=== PATIENT | female | born 1985 | race American Indian/Alaskan Native ===

== ENCOUNTER 2017-01-13 05:58 | Inpatient (IN) | payer OTHER ==
[2017-01-13] MEDS: Lactated Ringers 1,000 ML IV SCH ×5 (06:20→19:08)
[2017-01-13] MEDS ORDERED: ceFAZolin 2 GM in Premix Bag 1 BAG IV ONE (07:00)
[2017-01-13] MEDS ORDERED: Sodium Chloride 0.9% 10 ML Syringe FLUSH PRN (07:00)
[2017-01-13] MEDS ORDERED: Oxytocin/Normal Saline 30 UNIT/500 ML BAG IV SCH (07:00)
[2017-01-13] MEDS ORDERED: Citric Acid/Sodium Citrate Solution 30 ML Cup PO ONE (07:00)
[2017-01-13] MEDS ORDERED: Oxytocin/Normal Saline 60 UNIT/1,000 ML BAG ONE (07:01)
[2017-01-13] MEDS ORDERED: ePHEDrine 50 MG/ML SDV ONE (07:16)
[2017-01-13] MEDS ORDERED: Morphine PF 1 MG/ML Amp ONE ×2 (07:16→16:42)
[2017-01-13] MEDS ORDERED: Ondansetron 4 MG/2 ML SDV ONE (07:16)
[2017-01-13] MEDS ORDERED: Ketorolac 30 MG/ML SDV ONE (07:16)
[2017-01-13] MEDS ORDERED: Bupivacaine 0.75%/D5W 2 ML Amp ONE (07:19)
[2017-01-13] MEDS ORDERED: Ondansetron 4 MG/2 ML SDV IV PRN (09:37)
[2017-01-13] MEDS ORDERED: Misoprostol 400 MCG (4 X 100 MCG TAB) RECTAL PRN (09:37)
[2017-01-13] MEDS ORDERED: diphenhydrAMINE 50 MG/ML SDV IVPUSH PRN (09:37)
[2017-01-13] MEDS ORDERED: Acetaminophen 325 MG Tab PO PRN (09:37)
[2017-01-13] MEDS ORDERED: Methylergonovine 0.2 MG/1 ML Amp IM PRN (09:37)
[2017-01-13] MEDS ORDERED: ePHEDrine 50 MG/ML SDV IVPUSH PRN (09:37)
[2017-01-13] MEDS ORDERED: Naloxone 2 MG/2 ML Syringe IVPUSH PRN (09:37)
[2017-01-13] MEDS ORDERED: Carboprost Tromethamine 250 MCG/1 ML Amp IM ONE (09:37)
[2017-01-13] MEDS ORDERED: Acetaminophen/oxyCODONE 325-5 MG Tab PO PRN (09:37)
--- NOTE | 2017-01-13 13:43 | OR ---
DATE: 01/13/2017 PROCEDURE: Elective repeat low transverse section. CHIEF DIAGNOSES: 1. A 31-year-old, G3, P2, at 39 and 5/7 weeks' gestation. 2. Elective repeat low transverse section. 3. Gestational diabetes, diet controlled. 4. O positive blood type. 5. Rubella immune. 6. Group B streptococcus negative. 7. Mild anemia. POSTOPERATIVE DIAGNOSES: 1. A 31-year-old, G3, P2, at 39 and 5/7 weeks' gestation. 2. Elective repeat low transverse section. 3. Gestational diabetes, diet controlled. 4. O positive blood type. 5. Rubella immune. 6. Group B streptococcus negative. 7. Mild anemia. 8. Viable male , scores of 8 and 9, and 8 pounds 3 ounces. ASSISTANTS: 1. Shanti Gonzalez MD. 2. GIOVANNY Parkinson. ESTIMATED BLOOD LOSS: 800 mL. URINE OUTPUT: 500 mL clear urine. FLUIDS IN: 1700 mL. MEDICATIONS: Two grams Ancef IV preop and Pitocin IV infusion post delivery per protocol. COMPLICATIONS: None. FINDINGS: This delightful 31-year-old, G3, P2, presented as scheduled at 39 and 5/7 weeks' gestation for elective low transverse section. She underwent spinal anesthesia with excellent results, and Rojas catheter was placed. She was prepped and draped in the usual sterile manner, and a time-out procedure was performed in my presence. A purple marker was used to guru her previous incision. The scalp was used down through the old incision. Electrocautery was used down through the subcutaneous tissue, which showed some scarring. The fascia was divided transversely, and inferior and superior fascial flaps were developed with sharp and blunt dissection, and extensive scarring was noted. The rectus was identified and divided in the midline. Peritoneum was identified and entered, and the incision was extended until we had excellent visualization of the lower uterine segment. Extra large Tan retractor was placed with good results. Bladder flap was developed with sharp and blunt dissection, and a stab incision was made into the lower uterine segment. A large amount of clear fluid was noted once the amniotic sac was entered. Vertex was directed into the incision, and the baby was easily delivered. Time of delivery was 08:05 a.m., and this viable male weighed 8 pounds 3 ounces and had scores of 8 and 9 at 1 and 5 minutes respectively. Baby had a strong cry at , and cord was doubly clamped and cut by myself. The baby was carried to the warmer by Dr. Peck to awaiting nursery staff. The baby was then carried up to the parents once he was found to be stable for some skin to skin contact and care. A cord blood sample was obtained. The placenta was removed and found to be intact. The uterus was wiped clean and dry. Incision edges were grasped with Hess forceps. The uterus was closed with running locking 0 Vicryl. A second imbricating layer was placed followed by two nouxdv-sv-zqapz stitches for hemostasis. Examination of the incision showed it to be dry with no evidence of significant bleeding. The Tan retractor was removed. Gutters were examined and were dry, and the incision was again examined and was hemostatic. Peritoneum was closed with running Vicryl suture. The rectus layer was closed with loose interrupted Vicryl suture. The fascia was then brought together with 0 Maxon loop suture in a running standard fashion with excellent results. The subcutaneous layer did not show any significant bleeding. The skin edges were brought together with reese with excellent approximation. There were no intraoperative complications, and the patient remained stable throughout the procedure. She was transferred to recovery in good condition. We will follow standard postop and orders and routines adjusting as needed pending her clinical course. [facility] /[id number]
[2017-01-13] MEDS: Ketorolac 30 MG/ML SDV IVPUSH SCH ×2 (14:20→20:22)
[2017-01-13] MEDS ORDERED: Ondansetron 4 MG/2 ML SDV IV ONE (16:42)
[2017-01-13] MEDS ORDERED: Ketorolac 30 MG/ML SDV IVPUSH ONE (16:42)
[2017-01-13] MEDS ORDERED: Oxytocin/Normal Saline 30 UNIT/500 ML BAG IV ONE (16:42)
[2017-01-13] MEDS ORDERED: ePHEDrine 50 MG/ML SDV IV ONE (16:42)
[2017-01-13] MEDS: Simethicone 80 MG Tab.Chew PO PRN (20:22)
[2017-01-13] MEDS: Docusate Sodium 100 MG Cap PO PRN (20:23)
[2017-01-14] MEDS: Ketorolac 30 MG/ML SDV IVPUSH SCH (02:29)
[2017-01-14] MEDS: Docusate Sodium 100 MG Cap PO PRN (07:20)
[2017-01-14] MEDS: Simethicone 80 MG Tab.Chew PO PRN ×3 (07:20→15:33)
[2017-01-14] MEDS: Acetaminophen/oxyCODONE 325-5 MG Tab PO PRN ×5 (07:21→23:39)
[2017-01-14] MEDS: Ibuprofen 800 MG Tab PO PRN ×2 (10:29→18:25)
[2017-01-14] MEDS: Prenatal Multivitamin with Calcium/Folic Acid/Iron Tab PO SCH (11:08)
[2017-01-15] MEDS: Acetaminophen/oxyCODONE 325-5 MG Tab PO PRN ×2 (03:36→08:15)
[2017-01-15 04:41] VITALS: BP 97/58
[2017-01-15] MEDS: Docusate Sodium 100 MG Cap PO PRN (08:14)
[2017-01-15] MEDS: Simethicone 80 MG Tab.Chew PO PRN (08:14)
[2017-01-15] MEDS: Ibuprofen 800 MG Tab PO PRN (08:14)
[2017-01-15] MEDS: Prenatal Multivitamin with Calcium/Folic Acid/Iron Tab PO SCH (08:14)
--- NOTE | 2017-01-15 10:47 | PN ---
DATE: 01/14/2017 SUBJECTIVE: Postop day #1, status post elective repeat low-transverse section, and doing well, has recovered from her spinal anesthesia. Rojas catheter is being removed. She is voiding without difficulty. No vomiting. Has been able to eat. She is . OBJECTIVE: Vital Signs: Temperature 98.4, pulse 68, blood pressure 107/62. Abdomen: Soft. Bowel sounds are present. Incision is intact. Extremities: Without edema. LABORATORY DATA: Lab work. White count 8.9, hemoglobin 10.3, platelet count of 190. IMPRESSION: Postop day #1, status post elective repeat low-transverse section in this delightful 31-year-old, G3, now P3, at 39 and 5/7 weeks' gestation, with gestational diabetes which was diet controlled, and her glucose on admission was 85. O positive blood type. Rubella immune. Group B strep negative. Mild anemia. mom with a viable male . PLAN: We will continue with routine postop and cares. She likely will be discharged home tomorrow per her request for early discharge and is doing well. Further management pending her clinical course. [facility] /[id number]
--- NOTE | 2017-01-15 14:49 | DISCH ---
FINAL DIAGNOSES: 1. A 31-year-old, G3, now P3, at 39 and 5/7 weeks' gestation. 2. Elective repeat low-transverse section. 3. Viable male , scores 8 and 9 with a weight 8 pounds, 4 ounces. 4. Gestational diabetes, diet controlled. 5. O positive blood type. 6. Rubella immune. 7. Group B strep negative. 8. Mild anemia. 9. mother. FINDINGS: This delightful, 31-year-old, G3, P2, presented as scheduled at 39 and 5/7 weeks' gestation for elective repeat low-transverse section. She underwent spinal anesthesia and surgery as scheduled, delivering an 8 pounds, 4 ounce male with scores of 8 and 9 at 1 and 5 minutes respectively. The surgery was uncomplicated. Please see her operative note for details. weight was 3735 g. Her spinal anesthesia completely resolved. Rojas catheter was removed, and bladder function returned. She is voiding without difficulty. She is eating, ambulating, voiding, and stooling. Her vitals have remained stable and she has remained afebrile. She is without difficulty and has been bonding well with baby. Lab work showed white count 8.9 on admission, and recheck of 8.9 postop. Hemoglobin 11.7 on admit with 10.3 on postop day #1. Platelet count 224, with a recheck of 190. Glucose was 85 on admit and was not rechecked as she was doing very well. The patient requested early discharge on postop day #2. On examination, her abdomen was soft. Bowel sounds active. Her incision is intact with no sign of dehiscence or infection. Her reese were intact and she was felt clinically stable enough for discharge. She was discharged home on postop day #2 in good condition. Will follow up in 1 week for staple removal and postop recheck. Will continue to follow her other postop and orders. MEDICATIONS: Include: 1. vitamins 1 daily. 2. Iron b.i.d. 3. Ibuprofen kqyh-kef-nydqszz. 4. Percocet prescription written for 5-325 mg, #28, 1 q.i.d. p.r.n. pain with no refills. All of her questions were answered, and will follow other regular discharge orders and instructions. Further management pending her clinical course. [facility] /[id number]
== END 2017-01-15 12:00 | disposition home or self-care (01) | DRG 766 ==
LOC: DL.OB 05:58 → EDSTATUS 08:00 → DL.OB 08:05 → OBSVTOIN 08:05
PROVIDERS: ADMIT Family Medicine; ATTEND Family Medicine
PROC: 10D00Z1 Extraction of Products of Conception, Low, Open Approach (ICD-10-PCS; principal; 2017-01-13)
DX: O34.211 Maternal care for low transverse scar from previous cesarean delivery (principal); N85.8 Other specified noninflammatory disorders of uterus; Z3A.40 40 weeks gestation of pregnancy; Z37.0 Single live birth; O24.420 Gestational diabetes mellitus in childbirth, diet controlled; O99.02 Anemia complicating childbirth; D64.9 Anemia, unspecified; Z87.891 Personal history of nicotine dependence
CPT/HCPCS: 01961; 36415; 59025; 82947; 85025; 85027; 86850; 86900; 86901; 94010; A9270-GY; J0690; J1885; J2274; J2405; J2590; J7120

== ENCOUNTER 2021-03-19 05:02 | Observation (INO) | payer OTHER ==
[2021-03-19] MEDS ORDERED: Oxytocin/Normal Saline 30 UNIT/500 ML BAG IV ONE (05:03)
[2021-03-19] MEDS ORDERED: Oxytocin/Normal Saline 60 UNIT/1,000 ML BAG ONE (06:11)
[2021-03-19] MEDS: Lactated Ringers 1,000 ML IV SCH ×4 (06:20→20:35)
[2021-03-19] MEDS ORDERED: Tranexamic Acid 1,000 MG in Sodium Chloride 0.9% 100 ML IV PRN (06:34)
[2021-03-19] MEDS ORDERED: diphenhydrAMINE 50 MG/ML SDV IVPUSH PRN (06:34)
[2021-03-19] MEDS ORDERED: Acetaminophen 325 MG Tab PO PRN (06:34)
[2021-03-19] MEDS ORDERED: Acetaminophen/oxyCODONE 325-5 MG Tab PO PRN ×2 (06:34)
[2021-03-19] MEDS ORDERED: Methylergonovine 0.2 MG/1 ML Amp IM PRN (06:34)
[2021-03-19] MEDS ORDERED: Misoprostol 400 MCG (4 X 100 MCG TAB) RECTAL PRN (06:34)
[2021-03-19] MEDS ORDERED: Carboprost Tromethamine 250 MCG/1 ML Amp IM PRN (06:34)
[2021-03-19] MEDS ORDERED: ePHEDrine 50 MG/ML SDV IVPUSH PRN (06:34)
[2021-03-19] MEDS ORDERED: Naloxone 2 MG/2 ML Syringe IVPUSH PRN (06:34)
[2021-03-19] MEDS ORDERED: Ondansetron 4 MG/2 ML SDV IVPUSH PRN (06:34)
[2021-03-19] MEDS ORDERED: Citric Acid/Sodium Citrate Solution 30 ML Cup ONE (07:24)
[2021-03-19] MEDS ORDERED: Citric Acid/Sodium Citrate Solution 30 ML Cup PO ONE (07:26)
[2021-03-19] MEDS ORDERED: ceFAZolin 2 GM in Premix Bag 1 BAG IV ONE (08:30)
[2021-03-19] MEDS ORDERED: Oxytocin/Normal Saline 30 UNIT/500 ML BAG IV SCH (08:42)
--- NOTE | 2021-03-19 09:06 | OBOUT ---
DATE: 03/19/2021 DATE AND TIME OF NST: 03/19/2021, 6:45 to 7:05. REASON FOR NST: 1. Intrauterine at 39 weeks by 22-week ultrasound. 2. Previous x3, requests repeat low transverse . 3. Advanced maternal age. 4. History of gestational diabetes mellitus with previous . The patient has been following her sugars and controlled with diet during this current . 5. GBS negative. 6. G4, P3-0-0-3. NST INTERPRETATION: During this time period, heart tone baseline is approximately 125 and at least two 15 x 15 beats per minute accelerations making this strip reactive as well as reassuring. Tocometer reveals potential of 4 to 5 contractions. The patient describes them only as tightening, not true contractions. ASSESSMENT: 1. Nonstress test, reactive and reassuring. 2. Tocometer reveals contractions. PLAN: Please see H and P, which was updated this morning, and we will proceed to the OR as soon as crew is ready and available. The patient understands and agrees with the above treatment plan. [facility] /[id number]
[2021-03-19] MEDS: Simethicone 80 MG Tab.Chew PO SCH ×4 (10:57→20:33)
[2021-03-19] MEDS: Prenatal Multivitamin with Calcium/Folic Acid/Iron Tab PO SCH (10:57)
--- NOTE | 2021-03-19 11:09 | OR ---
DATE: 03/19/2021 PREOPERATIVE DIAGNOSES: 1. Intrauterine at 39 weeks by 22 weeks ultrasound. 2. Previous x3, request repeat low transverse . 3. Advanced maternal age. 4. History of gestational diabetes mellitus with previous . Sugar was controlled during this with diet. 5. GBS negative. 6. G4, P3-0-0-3. POSTOPERATIVE DIAGNOSES: 1. Intrauterine at 39 weeks by 22 weeks ultrasound - delivered. 2. Previous x3, request repeat low transverse . 3. Advanced maternal age. 4. History of gestational diabetes mellitus with previous . Sugar was controlled during this with diet. 5. GBS negative. 6. G4, P3-0-0-3. 7. Burwell-tinged urine with conclusion of case noted. 8. Extensive scar tissue subfascially and at the fascial layer noted. PROCEDURE PERFORMED: NST followed by repeat low transverse . PHARMACY STOCK CLERK: Carole Orr MD ANESTHESIA: Spinal. ESTIMATED BLOOD LOSS: 400 mL. IV FLUIDS: 1000 mL lactated Ringer's. URINE OUTPUT: 200 mL and pink tinge colored urine. START: 8:03. UTERINE INCISION: 8:07. DELIVERY: 8:08. STOP: 8:34. FINDINGS: Male, score 8 and 8, weight pending. DESCRIPTION OF PROCEDURE IN DETAIL: After proper consent was obtained, the patient was brought to the operating room where spinal anesthetic was administered. A Rojas was placed under preop under sterile conditions. The abdomen was prepped and draped in normal sterile fashion. The patient was placed in supine position with left lateral tilt. A skin incision was then made over lower abdomen in transverse Pfannenstiel-type fashion over a previous scar and this was carried down to the fascia and scored in the midline with extensive scar tissue around the fascia noted. Subcutaneous tissue raked laterally with Tipton retractor. Fascial incision was extended in transverse fashion using curved Leroy's. Amado clamps x2 were used to grasp superior aspect of fascia and rectus muscles dissected from the fascia using sharp and blunt technique. In a similar fashion, Amado clamps x2 were used to grasp the inferior portion of the incision and rectus pyramidalis muscles were dissected from the fascia using sharp and blunt technique. Extensive scar tissue around this area was noted and care was taken and rectus muscles were in midline superiorly and abdominal cavity was entered superiorly, and incision was extended superiorly and inferiorly with blunt technique. Tan O large retractor was then introduced and used. Vesicouterine peritoneum was identified and incised in a transverse fashion with Metzenbaum scissors and bladder flap was made digitally. Curvilinear incision was made on lower uterine segment at 0807 hours. Uterus was entered sharply. Uterine incision was then extended in a transverse fashion using blunt technique. Rupture of membranes occurred at this time and clear fluid was noted. Subsequently, vertex was delivered through the incision followed by rest of the infant with minimal difficulty. Mouth and nares were suctioned. Cord was doubly clamped and cut and infant was brought over to the team. Then, approximately 10 mL of cord blood was obtained for labs. Placenta was then delivered with gentle cord traction and fundal massage. Uterine cavity was then cleared of all blood clots, debris, lap, sponge. Hess clamps were used to grasp the incision. This was closed in a running locked fashion and tied at lateral margins with 1-0 Vicryl. Second imbricating layer was applied and tied at lateral margins as oozing was noted along the length of the incision. First inspection of the uterine incision revealed hemostasis. Tan O retractor was then removed and paracolic gutters were then cleared of all blood clots and debris with lap, sponge. Anterior cul-de-sac was then irrigated copiously. All blood clots were removed. Second and final inspection of the uterine incision and anterior cul-de-sac revealed hemostasis. Rectus muscles were then reapproximated in midline with driqak-ay-rqbmx stitch using 1-0 Vicryl. Subfascial tissues were found to be hemostatic. Fascia was closed in a running fashion and tied at lateral margins with 0 looped PDS. Subcutaneous tissue was irrigated copiously. Hemostasis was reassured. Skin was reapproximated using 3-0 Monocryl on a Faisal needle and tied at lateral margins. Steri-Strips applied thereafter followed by dressing. Firm uterus, -1 below umbilicus at conclusion of the case. No immediate complications were noted. Sponge, lap, and needle counts were correct. The patient received 2 g Ancef preoperatively, Pitocin per protocol, and received Toradol at conclusion of case for pain control. Mother and are currently stable at the time of dictation. For the pink-tinged urine noted at conclusion of case, we will follow closely with Rojas left in place. Did discuss this with the patient and we will follow for resolution. If no resolution, may need further evaluation and management, and this was discussed with the patient as well. [facility] /[id number] MTDEleazar
[2021-03-19] MEDS: Ketorolac 30 MG/ML SDV IVPUSH SCH ×2 (14:13→20:26)
[2021-03-19] MEDS: Docusate Sodium 100 MG Cap PO PRN (20:33)
[2021-03-20] MEDS: Ketorolac 30 MG/ML SDV IVPUSH SCH (02:41)
[2021-03-20] MEDS: Prenatal Multivitamin with Calcium/Folic Acid/Iron Tab PO SCH (09:08)
[2021-03-20] MEDS: Docusate Sodium 100 MG Cap PO PRN (09:08)
[2021-03-20] MEDS: Simethicone 80 MG Tab.Chew PO SCH ×3 (09:08→17:50)
[2021-03-20] MEDS: Ibuprofen 800 MG Tab PO PRN ×2 (10:43→18:27)
--- NOTE | 2021-03-20 12:34 | PN ---
DATE: 03/20/2021 03/20/2021, postop day #1 status post repeat low transverse SUBJECTIVE: The patient is tolerating p.o., is ambulating. Rojas is in place. Passing flatus. Mild abdominal pain controlled with pain medicines as needed. OBJECTIVE: Vital Signs: Temperature 98.7, heart rate 62, blood pressure 105/63, respiratory rate 16. Lungs: Clear to auscultation bilaterally. Heart: S1, S2. Regular rate and rhythm. Abdomen: Firm uterus at +1 below umbilicus. Dressing is dry and intact over the incision. Extremities: No peripheral edema. No calf pain LABORATORY DATA: White cell count 8.1; hemoglobin 9.9, compared to predelivery hemoglobin 12.2; platelets 176. Urine output has been followed closely as there was hematuria noted after delivery, and over it appears to be 10-hour period there was at least 1700 mL and currently in the tubing there is a small or minimal amount of clotted blood less than 2 to 3 mm in length and thereafter beyond the tube proximally is clear urine with no evidence of gross hematuria. ASSESSMENT: 1. Postop day #1 status post repeat low transverse . 2. Hematuria after operation completed noted. PLAN: I did discuss the case with Dr. Mckeon, SHEEP KILLER on-call and as hematuria is significantly improving, nurses noted sometimes it seems to be exacerbated by movement. We will continue to follow clinically and closely. If not completely resolved by 48 hours after the case, which will be tomorrow morning, would consider CT urogram for further evaluation and management. Plans were discussed with the patient. We will continue to follow clinically and closely. Currently, waiting a call back from the CT department to make sure that we can do this with proper dye and evaluation. In anticipation for potential need for this, we will order a BMP and a CBC tomorrow and we will continue to follow clinically and closely. If worsens, may need sooner evaluation and Dr. Peck who is covering in my absence today will be notified. [facility] /[id number]
[2021-03-21] MEDS: Simethicone 80 MG Tab.Chew PO SCH ×2 (00:10→08:40)
[2021-03-21] MEDS: Ibuprofen 800 MG Tab PO PRN ×2 (02:37→09:53)
[2021-03-21 06:48] LABS: ANION GAP 13.8 mEq/L (7-13); CHLORIDE,CL 107 mmol/L (98-107); SODIUM,NA 142 mmol/L (136-145)
[2021-03-21] MEDS: Prenatal Multivitamin with Calcium/Folic Acid/Iron Tab PO SCH (08:40)
[2021-03-21] MEDS: Docusate Sodium 100 MG Cap PO PRN (08:40)
[2021-03-21 09:42] VITALS: BP 114/74; PULSE 82
--- NOTE | 2021-03-21 10:37 | DISCH ---
ADMITTING DIAGNOSES: 1. Intrauterine at 39 weeks by 22-week ultrasound. 2. Previous x3, requests repeat low transverse . 3. Advanced maternal age. 4. History of gestational diabetes mellitus previous . Sugar is controlled with diet during this with patient checking. 5. Group B streptococcus negative. 6. G4, P3-0-0-3. DISCHARGE DIAGNOSES: 1. Intrauterine at 39 weeks by 22-week ultrasound - delivered. 2. Previous x3, request repeat low transverse . 3. Advanced maternal age. 4. History of gestational diabetes mellitus previous . Sugar is controlled with diet during this with patient checking. 5. Group B streptococcus negative. 6. G4, P3-0-0-3. 7. Postop hematuria, followed closely and resolved. Discussed with Dr. Mckeon, INVESTIGATIONS DIRECTOR on-call on postop day #1, and was resolved on date of discharge. PROCEDURES PERFORMED: Nonstress test followed by repeat low transverse C- section. Procedure performed by Olvin Christensen MD. office administrative assistant, Carole Orr. His. HISTORY OF PRESENT ILLNESS: Please see H and P. SUMMARY OF HOSPITAL COURSE: The patient was admitted on the above date with the above diagnosis, underwent repeat low transverse yielding a male, scores of 8 and 8, weighing 7 pounds 15 ounces (3585 g). At the end of the case, hematuria was noted and followed closely, and resolved by postop day #2. Case was discussed as postop day #1 around 24 hours there was mild hematuria that persisted with Dr. Mckeon, INVESTIGATIONS DIRECTOR on-call. Urine output was excellent and followed as well, and upon date of discharge hematuria resolved. DISCHARGE EVALUATION: The patient is tolerating p.o., was ambulating, urinating, passing flatus, requesting discharge. PHYSICAL EXAMINATION: Vital Signs: Last set of vitals; temp 98.4, heart rate 75, blood pressure 109/68, respiratory rate 16. Lungs: Clear to auscultation bilaterally. Heart: S1, S2. Regular rate and rhythm. Abdomen: Firm uterus, +1 below umbilicus. Dressing over the incision is dry and intact. Extremities: No peripheral edema. No calf pain. LABORATORY DATA: Labs upon discharge; white cell count 10.8; hemoglobin 11, predelivery hemoglobin 12.2, and lowest being 9.9, platelets at 179. BMP was done; BUN normal 11, creatinine at 0.93. CONDITION ON DISCHARGE COMPARED TO CONDITION ON ADMISSION: Improved. DISCHARGE INSTRUCTION: 1. Diet: As tolerated. 2. Activity: No lifting more than 20 pounds. No sit-ups, straining, and pelvic rest for the next 6 weeks, with immediate return to fertility discussed with patient. 3. Reason to return or go to the emergency room discussed with patient in detail including, but not limited to temperature greater than 100.4, foul- smelling discharge, red or tender breasts, or increased vaginal bleeding, or increasing pain, drainage, or redness around the incision or if hematuria recurs recommend going to the ER and discussed with patient. DISCHARGE MEDICATIONS: Rbso-yna-fjwkada Tylenol or ibuprofen for pain, Percocet 5/325, 1 to 2 q.6 hours p.r.n., #20, no refills. Discussed the use of medications and adverse and unwanted effects, as well as precautions with driving. FOLLOW UP: Follow up in 2 weeks for incision check. Did discuss reasons to return or go to the emergency room with regard to her baby, and follow up will be made for Thursday, March 25, [address] Christensen in the clinic. She understands and agrees with the above treatment and plan. Please see discharge paperwork for further details as well. [facility] /[id number] MORE[place]
[2021-03-21] MEDS ORDERED: Ondansetron 4 MG/2 ML SDV IV ONE (11:49)
[2021-03-21] MEDS ORDERED: Morphine PF 1 MG/ML Amp ITHECAL ONE (11:49)
[2021-03-21] MEDS ORDERED: Ketorolac 30 MG/ML SDV IVPUSH ONE (11:49)
[2021-03-21] MEDS ORDERED: Dexamethasone 4 MG/ML SDV IV ONE (11:49)
[2021-03-21] MEDS ORDERED: Lactated Ringers 1,000 ML IV ONE (11:49)
== END 2021-03-21 11:50 | disposition home or self-care (01) ==
LOC: DL.MS 05:02
PROVIDERS: ADMIT Family Medicine; ATTEND Family Medicine
DX: O34.211 Maternal care for low transverse scar from previous cesarean delivery (principal); Z3A.39 39 weeks gestation of pregnancy; Z01.812 Encounter for preprocedural laboratory examination; Z20.822 Contact with and (suspected) exposure to COVID-19
CPT/HCPCS: 01961; 36415; 80048; 85027; 86850; 86900; 86901; A9270-GY; J0690; J1100; J1885; J2274; J2405; J2590; J7120; U0002

== ENCOUNTER 2021-03-23 03:30 | Emergency (ER) | payer OTHER ==
[2021-03-23] MEDS ORDERED: HYDROmorphone 0.5 MG/0.5 ML Syringe IVPUSH ONE ×2 (03:33→07:39)
[2021-03-23] MEDS ORDERED: HYDROmorphone 1 MG/ML Syringe ONE ×2 (03:34→05:06)
--- NOTE | 2021-03-23 03:43 | EDM.PDOC ---
ED HPI GENERAL MEDICAL PROBLEM - General Chief Complaint: Genitourinary Problem Stated Complaint: AMBULANCE Time Seen by Provider: 03/23/21 03:38 Source of Information: Reports: Patient History Limitations: Reports: No Limitations - History of Present Illness INITIAL COMMENTS - FREE TEXT/NARRATIVE: 35 y/o F c/o diffuse abd pain 09/29 since evening. Pain is pressure in n ature worse with deep breathing worse in the upper quad. . C section by Dr. Christensen here at [facility] on Thursday03-19-21. Pt reports her bladder was nicked during the operation and she ended up spending an extra night in the hospital with a catheter. Pt has been constipated and has not had a bowel movement since Thursday. Has not urinated since night. Pt states she got home from the hospital night and began having sweats and notices her abd began swelling. Pt was prescribed vicodin to take home after the c section and took two pils over the course of the last 3 days. Has not had any over the counter meds. No daily prescriptions. NKDA. 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 ED EXAM, GI/ABD - Physical Exam Exam: See Below Exam Limited By: No Limitations General Appearance: Alert, Moderate Distress Eyes: Bilateral: Normal Appearance Throat/Mouth: Normal Inspection, Normal Lips, Normal Teeth, Normal Gums, Normal Oropharynx, Normal Voice, No Airway Compromise Head: Atraumatic, Normocephalic Neck: Normal Inspection, Supple, Non-Tender, Full Range of Motion Respiratory/Chest: No Respiratory Distress, Lungs Clear, Normal Breath Sounds, No Accessory Muscle Use, Chest Non-Tender Cardiovascular: Tachycardia GI/Abdominal Exam: Distended, Rigid, Tender (diffuse tenderness throughout worse over the upper quad) (Female) Exam: Deferred Rectal (Female) Exam: Deferred Extremities: Normal Inspection, Normal Range of Motion, Non-Tender, Normal Capillary Refill, No Pedal Edema Neurological: Alert, Oriented, Normal Cognition Psychiatric: Anxious Skin Exam: Warm, Dry, Intact Course - Vital Signs Last Recorded V/S: Last Vital Signs Temp 99.3 F 03/23/21 06:21 Pulse 102 H 03/23/21 06:14 Resp 16 03/23/21 06:14 BP 92/61 03/23/21 06:14 Pulse Ox 93 L 03/23/21 06:14 - Orders/Labs/Meds Orders: Active Orders 24 hr Category Date Time Status Sodium Chloride 0.9% [Normal Saline] 1,000 ml Med 03/23/21 06:42 Active IV .BOLUS Sodium Chloride 0.9% [Normal Saline] 1,000 ml Med 03/23/21 05:15 Active IV ASDIRECTED Medication Orders Sodium Chloride (Normal Saline) 1,000 mls @ 999 mls/hr IV ASDIRECTED GRACIELA Last Admin: 03/23/21 05:15 Dose: 999 mls/hr Documented by: JAVAN Sodium Chloride (Normal Saline) 1,000 mls @ 125 mls/hr IV .BOLUS ONE Stop: 03/23/21 14:41 Labs: Laboratory Tests 03/23/21 03/23/21 03/23/21 Range/Units 03:45 03:57 03:57 WBC 14.3 H (5.0-10.0) 10^3/uL RBC 4.30 (4.2-5.4) 10^6/uL Hgb 13.5 D (12.0-16.0) g/dL Hct 41.1 (37.0-47.0) % MCV 95.6 D (80-100) fL MCH 31.4 (27.0-34.0) pg MCHC 32.8 L (33.0-35.0) g/dL Plt Count 301 D (150-450) 10^3/uL Neut % (Auto) 93.3 H (42.2-75.2) % Lymph % (Auto) 4.0 L (20.5-50.1) % [place] % (Auto) 2.2 (2-8) % Eos % (Auto) 0.4 L (1.0-3.0) % Baso % (Auto) 0.1 (0.0-1.0) % Sodium 134 L (136-145) mmol/L Potassium 5.0 (3.5-5.1) mmol/L Chloride 98 (98-107) mmol/L Carbon Dioxide 18 L (21-32) mmol/L Anion Gap 23.0 H (7-13) mEq/L BUN 32 H (7-18) mg/dL Creatinine 4.03 H D (0.55-1.02) mg/dL Est Cr Clr Drug Dosing 21.78 mL/min Estimated GFR (MDRD) 13 BUN/Creatinine Ratio 7.9 (No establ ref range) Glucose 117 H (70-99) mg/dL Lactic Acid (0.4-2.0) mmol/L Calcium 8.6 (8.5-10.1) mg/dL Total Bilirubin 1.0 (0.2-1.0) mg/dL AST 16 (15-37) U/L ALT 19 (14-59) U/L Alkaline Phosphatase 91 (46-116) U/L C-Reactive Protein 17.7 H (0.0-0.9) mg/dL Total Protein 7.3 (6.4-8.2) g/dL Albumin 2.6 L (3.4-5.0) g/dL Globulin 4.7 Albumin/Globulin Ratio 0.55 Urine Color Yellow (YELLOW) Urine Appearance Slightly cloudy (CLEAR) Urine pH 5.5 (5.0-9.0) Ur Specific [place] 1.020 (1.005-1.030) Urine Protein Negative (NEGATIVE) Urine Glucose (UA) Negative (NEGATIVE) Urine Ketones Negative (NEGATIVE) Urine Occult Blood Trace-intact H (NEGATIVE) Urine Nitrite Negative (NEGATIVE) Urine Bilirubin Negative (NEGATIVE) Urine Urobilinogen 0.2 (0.2-1.0) mg/dL Ur Leukocyte Esterase Negative (NEGATIVE) Urine RBC 5-10 H (0-5) /HPF Urine WBC 10-20 H (0-5/HPF) /HPF Ur Epithelial Cells Rare (NOT SEEN) /HPF Urine Bacteria Occasional (0-FEW/HPF) /HPF SARS-CoV-2 RNA (MATHEUS) (NEGATIVE) 03/23/21 03/23/21 Range/Units 03:57 04:56 WBC (5.0-10.0) 10^3/uL RBC (4.2-5.4) 10^6/uL Hgb (12.0-16.0) g/dL Hct (37.0-47.0) % MCV (80-100) fL MCH (27.0-34.0) pg MCHC (33.0-35.0) g/dL Plt Count (150-450) 10^3/uL Neut % (Auto) (42.2-75.2) % Lymph % (Auto) (20.5-50.1) % [place] % (Auto) (2-8) % Eos % (Auto) (1.0-3.0) % Baso % (Auto) (0.0-1.0) % Sodium (136-145) mmol/L Potassium (3.5-5.1) mmol/L Chloride (98-107) mmol/L Carbon Dioxide (21-32) mmol/L Anion Gap (7-13) mEq/L BUN (7-18) mg/dL Creatinine (0.55-1.02) mg/dL Est Cr Clr Drug Dosing mL/min Estimated GFR (MDRD) BUN/Creatinine Ratio (No establ ref range) Glucose (70-99) mg/dL Lactic Acid 0.9 (0.4-2.0) mmol/L Calcium (8.5-10.1) mg/dL Total Bilirubin (0.2-1.0) mg/dL AST (15-37) U/L ALT (14-59) U/L Alkaline Phosphatase (46-116) U/L C-Reactive Protein (0.0-0.9) mg/dL Total Protein (6.4-8.2) g/dL Albumin (3.4-5.0) g/dL Globulin Albumin/Globulin Ratio Urine Color (YELLOW) Urine Appearance (CLEAR) Urine pH (5.0-9.0) Ur Specific [place] (1.005-1.030) Urine Protein (NEGATIVE) Urine Glucose (UA) (NEGATIVE) Urine Ketones (NEGATIVE) Urine Occult Blood (NEGATIVE) Urine Nitrite (NEGATIVE) Urine Bilirubin (NEGATIVE) Urine Urobilinogen (0.2-1.0) mg/dL Ur Leukocyte Esterase (NEGATIVE) Urine RBC (0-5) /HPF Urine WBC (0-5/HPF) /HPF Ur Epithelial Cells (NOT SEEN) /HPF Urine Bacteria (0-FEW/HPF) /HPF SARS-CoV-2 RNA (MATHEUS) Negative (NEGATIVE) Meds: Medications Generic Name Dose Route Start Last Admin Trade Name Freq PRN Reason Stop Dose Admin Sodium Chloride 1,000 mls @ 999 mls/hr 03/23/21 05:15 03/23/21 05:15 Normal Saline IV 999 mls/hr ASDIRECTED GRACIELA Administration Sodium Chloride 1,000 mls @ 125 mls/hr 03/23/21 06:42 Normal Saline IV 03/23/21 14:41 .BOLUS ONE Discontinued Medications Generic Name Dose Route Start Last Admin Trade Name Freq PRN Reason Stop Dose Admin Hydromorphone HCl 1 mg 03/23/21 03:33 03/23/21 03:36 Hydromorphone 0.5 Mg/0.5 Ml Syringe IVPUSH 03/23/21 03:34 1 mg ONETIME ONE Administration Hydromorphone HCl Confirm 03/23/21 03:34 03/23/21 03:34 Hydromorphone 1 Mg/Ml Syringe Administered 03/23/21 03:35 Not Given Dose 1 mg .ROUTE .STK-MED ONE Hydromorphone HCl Confirm 03/23/21 05:06 03/23/21 05:09 Hydromorphone 1 Mg/Ml Syringe Administered 03/23/21 05:07 Not Given Dose 1 mg .ROUTE .STK-MED ONE Hydromorphone HCl 1 mg 03/23/21 05:10 03/23/21 05:09 Hydromorphone 1 Mg/Ml Syringe IVPUSH 03/23/21 05:11 1 mg ONETIME ONE Administration Sodium Chloride 2,000 mls @ 999 mls/hr 03/23/21 04:16 03/23/21 03:50 Normal Saline IV 03/23/21 06:16 999 mls/hr .BOLUS ONE Administration Lorazepam 2 mg 03/23/21 05:23 03/23/21 05:38 Lorazepam 2 Mg/Ml Sdv IVPUSH 03/23/21 05:24 1 mg ONETIME ONE Administration - Re-Assessments/Exams Free Text/Narrative Re-Assessment/Exam: 03/23/21 06:31 I spoke with the radiologist Dr. Deleon about the pt and asked him to over read the intial ct read. The ct shows a bladder perforation and the fluid in the abdomen is likely urine from the perforation. I will consult with urology to determine the best course of treatment for the pt. Free Text/Narrative Re-Assessment/Exam: 03/23/21 07:12 I contacted [facility] Dr. Kent urology who advised the pt should be admitted by urology so the bladder could be surgically repair. He advised no beds available at [facility]. I contacted [facility] and spoke with a Dr. Emmanuel in urology who refused to take the pt stating that he would not accept the pt from [facility] because Dr. Christensen who performed the surgery should be calling him to transfer the pt. Dr. Emmanuel was made aware that Dr. Christensen was not in house and that the pt had long since been discharged from his care. Dr. Emmanuel stated that I should contact [facility] and keep the pt within the [facility] network. I spoke with Dr. Bustos at [facility] who accepted the pt for transfer. I will send the pt via air as there is no ground ALS readily available. Departure - Departure Time of Disposition: 07:17 Disposition: DC/Tfer to Acute Hospital 02 Condition: Serious Clinical Impression: Perforation of bladder during operative procedure Hydronephrosis Qualifiers: Hydronephrosis type: other Qualified Code(s): N13.39 - Other hydronephrosis - Discharge Information *PRESCRIPTION DRUG MONITORING PROGRAM REVIEWED*: Not Applicable *COPY OF PRESCRIPTION DRUG MONITORING REPORT IN PATIENT YANG: Not Applicable Forms: ED Department Discharge, Interfacility Transfer EMTALA Sepsis Event Note (ED) - Focused Exam Vital Signs: Vital Signs Temp Pulse Resp BP Pulse Ox 03/23/21 06:21 99.3 F 03/23/21 06:14 102 H 16 92/61 93 L 03/23/21 05:40 92 22 H 95 03/23/21 04:30 100 18 120/78 94 L 03/23/21 04:15 99.0 F 95 24 H 125/79 94 L 03/23/21 03:35 99.3 F 114 H 40 H 127/87 96 - My Orders Last 24 Hours: My Active Orders 03/23/21 05:15 Sodium Chloride 0.9% [Normal Saline] 1,000 ml IV ASDIRECTED 03/23/21 06:42 Sodium Chloride 0.9% [Normal Saline] 1,000 ml IV .BOLUS - Assessment/Plan Last 24 Hours: My Active Orders 03/23/21 05:15 Sodium Chloride 0.9% [Normal Saline] 1,000 ml IV ASDIRECTED 03/23/21 06:42 Sodium Chloride 0.9% [Normal Saline] 1,000 ml IV .BOLUS
[2021-03-23] MEDS ORDERED: Sodium Chloride 0.9% 2,000 ML IV ONE (04:16)
[2021-03-23] MEDS ORDERED: HYDROmorphone 1 MG/ML Syringe IVPUSH ONE (05:10)
[2021-03-23] MEDS ORDERED: Sodium Chloride 0.9% 1,000 ML IV SCH (05:15)
[2021-03-23] MEDS ORDERED: LORazepam 2 MG/ML SDV IVPUSH ONE (05:23)
--- NOTE | 2021-03-23 05:36 | CT ---
PROCEDURE INFORMATION: Exam: CT Abdomen And Pelvis Without Contrast Exam date and time: 03/23/2021 4:59 AM Age: 35 years old Clinical indication: Other: P5 days post , now bowel movement for 1 week, no urination 3 days. Reported bladder was nicked with scapel during , diffuse abd pain over entire distended abd; Prior surgery; Surgery date: 3-7 days post-operative TECHNIQUE: Imaging protocol: Computed tomography of the abdomen and pelvis without contrast. Radiation optimization: All CT scans at this facility use at least one of these dose optimization techniques: automated exposure control; mA and/or kV adjustment per patient size (includes targeted exams where dose is matched to clinical indication); or iterative reconstruction. COMPARISON: No relevant prior studies available. FINDINGS: Lungs: There are moderate areas of parenchymal opacification in the lung bases, larger on the right. Consider atelectasis and/or pneumonia. Liver: Normal. No mass. Gallbladder and bile ducts: The gallbladder contains multiple small stones. No definite thickening of the gallbladder wall is appreciated. Pancreas: Normal. No ductal dilation. Spleen: Normal. No splenomegaly. Adrenal glands: Normal. No mass. Kidneys and ureters: A large amount of fluid is present within the abdomen with average Hounsfield units of the approximately 1 . Mild dilatation of the right renal collecting system is noted. No stones are identified. Consider right ovarian vein syndrome. Stomach and bowel: Unremarkable. No obstruction. No mucosal thickening. Appendix: No evidence of appendicitis. Intraperitoneal space: Unremarkable. No free air. No significant fluid collection. Vasculature: Unremarkable. Lymph nodes: Unremarkable. No enlarged lymph nodes. Urinary bladder: A Rojas catheter decompresses the urinary bladder. Reproductive: The uterus is enlarged as expected. Bones/joints: Unremarkable. No acute fracture. Soft tissues: Unremarkable. IMPRESSION: Large amount fluid in abdomen, exact origin is indeterminate. 2. Cholelithiasis. 3. Bibasilar opacifications, consider atelectasis and/or pneumonia.
[2021-03-23 06:14] VITALS: BP 92/61; PULSE 102
[2021-03-23] MEDS ORDERED: Sodium Chloride 0.9% 1,000 ML IV ONE (06:42)
== END 2021-03-23 09:28 ==
LOC: DL.ED 03:30
DX: N13.39 Other hydronephrosis (principal); N32.89 Other specified disorders of bladder; Z20.822 Contact with and (suspected) exposure to COVID-19
CPT/HCPCS: 36415; 74176; 80053; 81001; 83605; 85025; 86140; 87635; 96374; 96375; 96376; 99285; J1170; J2060; J7030; U0002

== ENCOUNTER 2022-12-14 15:48 | Emergency (ER) | payer OTHER ==
[2022-12-14 16:03] VITALS: BP 128/79; PULSE 106
[2022-12-14 16:07] LABS: BASOPHILS PERCENT AUTO 0.5 % (0.0-1.0); EOSINOPHILS PERCENT AUTO 1.7 % (1.0-3.0); HEMATOCRIT 42.1 % (37.0-47.0); HEMOGLOBIN 13.4 g/dL (12.0-16.0); LYMPHOCYTES PERCENT AUTO 32.4 % (20.5-50.1); MEAN CORPUSCULAR HEMOGLOBIN 28.8 pg (27.0-34.0); MEAN CORPUSCULAR HGB CONC 31.8 g/dL (33.0-35.0); MEAN CORPUSCULAR VOLUME 90.3 fL (80-100); MONOCYTES PERCENT AUTO 8.1 % (2-8); NEUTROPHILS PERCENT AUTO 57.3 % (42.2-75.2); PLATELET COUNT,PLT 332 10^3/uL (150-450); RED BLOOD CELL COUNT 4.66 10^6/uL (4.2-5.4); WHITE BLOOD CELL COUNT,WBC 9.4 10^3/uL (5.0-10.0)
[2022-12-14 16:30] LABS: INR 0.9 (0.9-1.2); PROTHROMBIN TIME 9.7 SEC (9.0-12.0); PTT,PARTIAL THROMBOPLSTIN TIME 21.3 SEC (22.0-34.0)
[2022-12-14 16:33] LABS: ALBUMIN 3.8 g/dL (3.4-5.0); ANION GAP 19.5 mEq/L (7-13); BILIRUBIN TOTAL 0.7 mg/dL (0.2-1.0); BUN/CREATININE RATIO 10.3 (No establ ref range); C-REACTIVE PROTEIN 0.09 ng/dL (<=0.30); CALCIUM 8.7 mg/dL (8.5-10.1); CREATININE 0.87 mg/dL (0.55-1.02); EST CRCL DRUG DOSING (CG) 98.95 mL/min; MAGNESIUM 1.8 mg/dL (1.8-2.4); POTASSIUM,K 3.5 mmol/L (3.5-5.1); PROTEIN TOTAL,TP 7.6 g/dL (6.4-8.2)
[2022-12-14] MEDS ORDERED: Iopamidol 755 Mg/ML 100 ML Bottle IVPUSH ONE (17:15)
== END 2022-12-14 20:01 | disposition home or self-care (01) ==
LOC: DL.ED 15:48
DX: R00.0 Tachycardia, unspecified (principal); I49.3 Ventricular premature depolarization; F17.210 Nicotine dependence, cigarettes, uncomplicated
CPT/HCPCS: 36415; 71045; 71275; 80053; 83690; 83735; 84484; 85025; 85379; 85610; 85730; 86140; 93005; 93010; 99284; 99285; Q9967

== ENCOUNTER 2024-10-19 15:52 | Observation (INO) | payer SELFPAY ==
[~2024-10-19 15:52] MED LIST: Sodium Chloride 0.9% 10 ML Syringe FLUSH PRN
[2024-10-19 16:07] LABS: BASOPHILS PERCENT AUTO 0.5 % (0.0-1.0); EOSINOPHILS PERCENT AUTO 1.6 % (1.0-3.0); LYMPHOCYTES PERCENT AUTO 19.9 % (20.5-50.1); MONOCYTES PERCENT AUTO 9.1 % (2-8); NEUTROPHILS PERCENT AUTO 68.9 % (42.2-75.2); PLATELET COUNT,PLT 296 10^3/uL (150-450); RED BLOOD CELL COUNT 4.57 10^6/uL (4.2-5.4); WHITE BLOOD CELL COUNT,WBC 8.6 10^3/uL (5.0-10.0)
[2024-10-19 16:14] LABS: APPEARANCE,URINE CLOUDY (CLEAR); GLUCOSE,URINE NEGATIVE (NEGATIVE); OCCULT BLOOD,URINE TRACE-INTACT (NEGATIVE)
[2024-10-19] MEDS: Ondansetron 4 MG/2 ML SDV IVPUSH PRN (16:19)
[2024-10-19] MEDS: Ketorolac 30 MG/ML SDV IVPUSH ONE (16:19)
[2024-10-19 16:23] LABS: EPITHELIAL CELLS,URINE RARE /HPF (NOT SEEN)
[2024-10-19 16:27] LABS: A/G RATIO 1.0; ALANINE AMINOTRANSFERASE,ALT 16 U/L (14-59); ASPARTATE AMNIOTRANSFERASE,AST 16 U/L (15-37); BILIRUBIN TOTAL 1.0 mg/dL (0.2-1.0); BLOOD UREA NITROGEN,BUN 9 mg/dL (7-18); CARBON DIOXIDE,CO2 23 mmol/L (21-32); CHLORIDE,CL 104 mmol/L (98-107); CREATININE 0.73 mg/dL (0.55-1.02); EST CRCL DRUG DOSING (CG) 115.64 mL/min; ESTIMATED GFR 107 mL/min (>=60); GLUCOSE RANDOM 94 mg/dL (70-99); POTASSIUM,K 3.8 mmol/L (3.5-5.1); PROTEIN TOTAL,TP 7.9 g/dL (6.4-8.2); SODIUM,NA 138 mmol/L (136-145)
[2024-10-19 16:30] LABS: LACTIC ACID 1.3 mmol/L (0.4-2.0)
[2024-10-19] MEDS: fentaNYL 100 MCG/2 ML SDV IVPUSH PRN (16:50)
[2024-10-19 17:50] LABS: AMPHETAMINES,URINE NEGATIVE (NEGATIVE); BARBITURATES,URINE NEGATIVE (NEGATIVE); MDMA (ECSTASY), URINE NEGATIVE (NEGATIVE); METHAMPHETAMINES,URINE NEGATIVE (NEGATIVE); OPIATES,URINE NEGATIVE (NEGATIVE); OXYCODONE,URINE NEGATIVE (NEGATIVE); PHENCYCLIDINE,URINE NEGATIVE (NEGATIVE); TCA,URINE NEGATIVE (NEGATIVE)
[2024-10-19] MEDS ORDERED: Sodium Chloride 0.9% 10 ML Syringe FLUSH PRN (18:46)
[2024-10-19 19:07] LABS: INR 0.9 (0.9-1.2); PTT,PARTIAL THROMBOPLSTIN TIME 23.8 SEC (22.0-34.0)
[2024-10-19] MEDS: Ketorolac 30 MG/ML SDV IVPUSH PRN (20:14)
[2024-10-19] MEDS: Sodium Chloride 0.9% 10 ML Syringe FLUSH SCH (20:24)
[2024-10-19] MEDS ORDERED: Ondansetron 4 MG/2 ML SDV IVPUSH PRN (22:00)
[2024-10-20] MEDS: fentaNYL 100 MCG/2 ML SDV IVPUSH ONE (04:29)
[2024-10-20 06:21] LABS: BASOPHILS PERCENT AUTO 0.3 % (0.0-1.0); EOSINOPHILS PERCENT AUTO 4.9 % (1.0-3.0); LYMPHOCYTES PERCENT AUTO 23.5 % (20.5-50.1); MONOCYTES PERCENT AUTO 11.6 % (2-8); NEUTROPHILS PERCENT AUTO 59.7 % (42.2-75.2); PLATELET COUNT,PLT 246 10^3/uL (150-450); RED BLOOD CELL COUNT 4.10 10^6/uL (4.2-5.4); WHITE BLOOD CELL COUNT,WBC 6.0 10^3/uL (5.0-10.0)
[2024-10-20 06:43] LABS: ALANINE AMINOTRANSFERASE,ALT 14.0 U/L (14-59); ASPARTATE AMNIOTRANSFERASE,AST 14.0 U/L (15-37); BILIRUBIN TOTAL 1.0 mg/dL (0.2-1.0); BLOOD UREA NITROGEN,BUN 11.0 mg/dL (7-18); CARBON DIOXIDE,CO2 27.0 mmol/L (21-32); CHLORIDE,CL 106.0 mmol/L (98-107); CREATININE 0.69 mg/dL (0.55-1.02); EST CRCL DRUG DOSING (CG) 82.6 mL/min; GLUCOSE RANDOM 96.0 mg/dL (70-99); POTASSIUM,K 4.1 mmol/L (3.5-5.1); PROTEIN TOTAL,TP 6.1 g/dL (6.4-8.2); SODIUM,NA 139.0 mmol/L (136-145)
[2024-10-20 06:47] LABS: A/G RATIO 0.85; ESTIMATED GFR 113.0 mL/min (>=60)
[2024-10-20] MEDS: Iopamidol 755 Mg/ML 100 ML Bottle IVPUSH ONE (10:50)
[2024-10-20 16:26] VITALS: BP 114/73; PULSE 73
[2024-10-20] MEDS ORDERED: Sennosides/Docusate Sodium 50-8.6 MG Tab PO SCH (21:00)
== END 2024-10-20 16:47 | disposition home or self-care (01) ==
LOC: DL.ED 15:52 → DL.MS 18:03 → DL.ED 18:05 → DL.MS 18:20 → UNDOADMOB 18:20
PROVIDERS: ADMIT Student in an Organized Health Care Education/Training Program; ATTEND Student in an Organized Health Care Education/Training Program
DX: N30.90 Cystitis, unspecified without hematuria (principal); J45.909 Unspecified asthma, uncomplicated
CPT/HCPCS: 36415; 71275; 74176; 74177; 80053; 80305; 80307; 81001; 81025; 83605; 83735; 84145; 85025; 85379; 85610; 85730; 87040; 87086; 87088; 87186; 94010; 96361; 96374; 96375; 99285; A9270; J0696; J1885; J2405; J3010; J7030; Q9967